=== PATIENT | female | born 1980 | race American Indian/Alaskan Native ===

== ENCOUNTER 2018-10-31 18:12 | Emergency (ER) | payer OTHER ==
--- NOTE | 2018-10-31 18:29 | Emergency Department Report ---
Blank Doc - Documentation Documentation: This is a 38-year-old female that presents with pelvic pain that started today. Denies any nausea or vomiting. Denies any radiation pain. Denies any vaginal bleeding. Denies urinary symptoms. Denies any other complaints. This initial assessment diagnostic orders/clinical plan/treatment(s) is/are subject to change based on patient's health status, clinical progression and re- assessment by fellow clinical providers in the ED. Further treatment and workup at subsequent clinical providers discretion. Patient/guardians urged not to elope from ED s their condition may be serious if not clinically assessed and managed. Initial orders include: 1-Patient sent to [facility] for further evaluation and treatment. 2- Labs 3- UA
[2018-10-31 18:30] VITALS: BP 134/88
[2018-10-31 19:09] LABS: HCG Qualitative,Urine Negative (Negative)
[2018-10-31 19:14] LABS: Bacteria,Urine 1+ /HPF (Negative); Bilirubin,Urine NEG (Negative); Blood,Urine NEG (Negative); Color,Urine Yellow (Yellow); Hyaline Casts,Urine 1 /LPF; Mucus,Urine FEW /HPF; Protein,Urine <15 mg/dL mg/dL (Negative); Urobilinogen,Urine < 2.0 mg/dL (<2.0)
[2018-10-31 19:24] LABS: Basophils # (Auto) 0.1 K/mm3 (0.0-0.1); Basophils % (Auto) 0.7 % (0.0-1.8); Eosinophils # (Auto) 0.2 K/mm3 (0.0-0.4); Eosinophils % (Auto) 1.7 % (0.0-4.3); Hematocrit 37.3 % (30.3-42.9); Hemoglobin 12.5 gm/dl (10.1-14.3); Lymphocytes # (Auto) 3.6 K/mm3 (1.2-5.4); Lymphocytes % (Auto) 40.5 % (13.4-35.0); Mean Corpuscular HGB Conc 34 % (30-34); Mean Corpuscular Volume 90 fl (79-97); Monocytes # (Auto) 0.5 K/mm3 (0.0-0.8); Monocytes % (Auto) 5.7 % (0.0-7.3); Platelet Count 393 K/mm3 (140-440); Red Blood Count 4.14 M/mm3 (3.65-5.03); Red Cell Distribution Width 13.4 % (13.2-15.2)
[2018-10-31 19:41] LABS: BUN/Creatinine Ratio 9; Blood Urea Nitrogen 7 mg/dL (7-17); Calcium 9.3 mg/dL (8.4-10.2); Hemolysis Index 36
--- NOTE | 2018-10-31 20:28 | Emergency Department Report ---
ED Female HPI - General Chief complaint: Abdominal Pain Stated complaint: LOWER STOMACH PAIN Time Seen by Provider: 10/31/18 18:28 Source: patient Mode of arrival: Ambulatory Limitations: No Limitations - History of Present Illness Initial comments: 38-year-old -Filipino female reports to the emergency room for complaint of sharp lower pelvic pressure that started about 1500 today. Patient reports the discomfort is intermittent and sharp in nature will last about 10 minutes and then goes away. Patient reports standing makes the pain worse and nothing really makes it better. Patient reports that she did take ibuprofen and it has helped a little. Patient denies any nausea no vomiting no fever no chills. Patient reports that her last BM was yesterday which is her normal pattern. Patient does report a history of ovarian cysts and not sure if that could be. Patient reports no known drug allergies currently takes no medications and has a history of kidney stone. MD Complaint: pelvic pain -: hour(s) (5) Location: suprapubic Radiation: non-radiating Severity scale (0 -10): 8 Quality: sharp Consistency: intermittent Improves with: medication (ib) Worsens with: other (standing for a long period of time) Are you Now?: No Last Menstrual Period: 10/19/18 EDC: 07/26/19 Associated Symptoms: denies other symptoms - Related Data Sexually active: Yes Previous Rx's Medication Instructions Recorded Last Taken Type Ibuprofen [Motrin 800 MG tab] 800 mg PO Q8HR PRN #15 tablet 10/31/18 Unknown Rx Allergies Allergy/AdvReac Type Severity Reaction Status Date / Time No Known Allergies Allergy Unverified 10/31/18 18:30 ED Review of Systems ROS: Stated complaint: LOWER STOMACH PAIN Other details as noted in HPI Comment: All other systems reviewed and negative Constitutional: denies: chills, fever Eyes: denies: eye pain, eye discharge, vision change ENT: denies: ear pain, throat pain Respiratory: denies: cough, shortness of breath, wheezing Gastrointestinal: abdominal pain (intermittent pelvic pain). denies: nausea, vomiting, diarrhea, constipation Genitourinary: denies: urgency, dysuria, frequency, hematuria, discharge Musculoskeletal: denies: back pain, joint swelling, arthralgia Skin: denies: rash, lesions ED Past Medical Hx - Past Medical History Previous Medical History?: No Hx Renal Disease: Yes (kidney stones) - Surgical History Past Surgical History?: No - Social History Smoking Status: Current Every Day Smoker Substance Use Type: None - Medications Home Medications: Home Medications Medication Instructions Recorded Confirmed Last Taken Type Ibuprofen [Motrin 800 MG tab] 800 mg PO Q8HR PRN #15 tablet 10/31/18 Unknown Rx ED Physical Exam - General Limitations: No Limitations General appearance: alert, in no apparent distress - Head Head exam: Present: atraumatic, normocephalic - Eye Eye exam: Present: EOMI - ENT ENT exam: Present: mucous membranes moist - Neck Neck exam: Present: normal inspection, full ROM - Respiratory Respiratory exam: Present: normal lung sounds bilaterally. Absent: respiratory distress - Cardiovascular Cardiovascular Exam: Present: regular rate, normal rhythm. Absent: systolic murmur, diastolic murmur, rubs, gallop - GI/Abdominal GI/Abdominal exam: Present: soft, tenderness (with deep palpation), normal bowel sounds. Absent: distended, guarding, rebound, rigid, mass - External exam: Present: normal external exam. Absent: erythema, swelling Bi-manual exam: Present: normal bi-manual exam. Absent: cervical motion tendernes, adnexal tenderness, adnexal mass, uterine enlargement, uterine tenderness - Extremities Exam Extremities exam: Present: normal inspection, full ROM - Back Exam Back exam: Present: normal inspection, full ROM - Neurological Exam Neurological exam: Present: alert, oriented X3 - Psychiatric Psychiatric exam: Present: normal affect, normal mood - Skin Skin exam: Present: warm, dry, intact, normal color. Absent: rash ED Course Vital Signs 10/31/18 10/31/18 18:28 20:45 Temperature 98.9 F Pulse Rate 106 H 75 Respiratory 18 16 Rate Blood Pressure 134/88 O2 Sat by Pulse 99 100 Oximetry ED Medical Decision Making - Lab Data Result diagrams: 10/31/18 19:13 10/31/18 19:13 Laboratory Results - last 72 hr 10/31/18 10/31/18 10/31/18 18:43 19:13 19:13 WBC 8.8 RBC 4.14 Hgb 12.5 Hct 37.3 MCV 90 MCH 30 MCHC 34 RDW 13.4 Plt Count 393 Lymph % (Auto) 40.5 H [place] % (Auto) 5.7 Eos % (Auto) 1.7 Baso % (Auto) 0.7 Lymph # 3.6 [place] # 0.5 Eos # 0.2 Baso # 0.1 Seg Neutrophils % 51.4 Seg Neutrophils # 4.5 Sodium 136 L Potassium 3.8 Chloride 98.9 Carbon Dioxide 23 Anion Gap 18 BUN 7 Creatinine 0.8 Estimated GFR > 60 BUN/Creatinine Ratio 9 Glucose 90 Calcium 9.3 Urine Color Yellow Urine Turbidity Clear Urine pH 5.0 Ur Specific [place] 1.018 Urine Protein <15 mg/dl Urine Glucose (UA) Neg Urine Ketones Neg Urine Blood Neg Urine Nitrite Neg Ur Reducing Substances Not Reportable Urine Bilirubin Neg Urine Ictotest Not Reportable Urine Urobilinogen < 2.0 Ur Leukocyte Esterase Neg Urine WBC (Auto) 2.0 Urine RBC (Auto) 5.0 U Epithel Cells (Auto) 10.0 Urine Bacteria (Auto) 1+ Hyaline Casts 1 Urine Mucus Few Urine HCG, Qual Negative - Medical Decision Making Patient has been evaluated by this provider in [facility]. Abdominal lab protocol has been initiated. Labs are within normal limits. Ibuprofen is helping the patient's pain. Discussed patient is stable to be discharged home and to follow up with a primary care provider discussed patient I will refer her to one for her convenience. 38 Year old female patient presents today with{CC}. [Lab/Xray} reveals patient is in no acute distress at this time. She will be discharged home and encouraged to follow up with a primary care provider. She is encouraged to return to the emergency room for any worsening symptoms. Critical care attestation.: If time is entered above; I have spent that time in minutes in the direct care of this critically ill patient, excluding procedure time. ED Disposition Clinical Impression: Pelvic pain Disposition: [id number] TO HOME OR SELFCARE Is pt being admited?: No Does the pt Need Aspirin: No Condition: Stable Instructions: Abdominal Pain (ED) Additional Instructions: Please take pain medication as described. Please increase her water intake and take flu with taking the ibuprofen. If her symptoms persist or gets worse please follow-up with the primary care provider or an [facility] provider. Prescriptions: Ibuprofen [Motrin 800 MG tab] 800 mg PO Q8HR PRN #15 tablet PRN Reason: Pain , Severe (7-10) Referrals: RAMON KING [Primary Care Provider] - 3-5 Days [facility] [Provider Group] - 3-5 Days Forms: Work/School Release Form(ED)
== END 2018-10-31 20:45 | disposition home or self-care (01) ==
LOC: ED 18:12
DX: R10.2 Pelvic and perineal pain (principal); Z87.442 Personal history of urinary calculi; F17.200 Nicotine dependence, unspecified, uncomplicated
CPT/HCPCS: 36415; 80048; 81001; 81025; 85025